=== PATIENT | female | born 1990 | race Two or more races ===

== ENCOUNTER → 2017-12-01 | Outpatient (CLI) | payer OTHER ==
[~2017-12-01] MED LIST: ATARAX25 MG PO; PROVENTIL3 ML/2.5 M IH; SYNTHROID50 MCG; SYNTHROID50 MCG PO; SYNTROID PO; ULTRACET PO; VOLTAREM 50 MG PO; ZITHROMAX200 MG PO; ZYNCOF 20-400120 ML PO; ZYRTEC10 MG PO
== END | disposition left against medical advice (07) ==
LOC: CERTIFICAD 08:17 → PPHC 08:17
DX: Z53.20 Procedure and treatment not carried out because of patient's decision for unspecified reasons (principal)

== ENCOUNTER → 2018-01-25 | Outpatient (CLI) | payer OTHER | END | disposition home or self-care (01) | LOC: PPHC 09:08 | DX: J06.9 Acute upper respiratory infection, unspecified (principal) ==

== ENCOUNTER → 2018-01-27 | Outpatient (CLI) | payer OTHER | END | disposition home or self-care (01) | LOC: PPHC 10:58 | DX: R49.0 Dysphonia (principal) ==

== ENCOUNTER 2018-02-07 10:53 | Outpatient (CLI) | payer OTHER | END 2018-02-07 11:05 | disposition home or self-care (01) | LOC: RAD 10:53 | DX: R06.02 Shortness of breath (principal); R09.81 Nasal congestion ==

== ENCOUNTER → 2018-02-07 | Outpatient (CLI) | payer OTHER | END | disposition home or self-care (01) | LOC: PPHC 09:47 | DX: J06.9 Acute upper respiratory infection, unspecified (principal) ==

== ENCOUNTER 2018-03-22 11:18 | Outpatient (CLI) | payer OTHER | END 2018-03-22 11:20 | disposition home or self-care (01) | LOC: LAB 11:18 | DX: J11.89 Influenza due to unidentified influenza virus with other manifestations (principal); R50.9 Fever, unspecified ==

== ENCOUNTER 2018-08-06 11:00 | Outpatient (CLI) | payer OTHER | END 2018-08-06 11:06 | disposition home or self-care (01) | LOC: RAD 11:00 | DX: G50.1 Atypical facial pain (principal) ==

== ENCOUNTER 2018-08-11 12:32 | Outpatient (CLI) | payer OTHER | END 2018-08-11 12:56 | disposition home or self-care (01) | LOC: LAB 12:32 | DX: E03.8 Other specified hypothyroidism (principal); R03.0 Elevated blood-pressure reading, without diagnosis of hypertension ==

== ENCOUNTER 2018-10-17 10:12 | Outpatient (CLI) | payer OTHER | END 2018-10-17 10:18 | disposition home or self-care (01) | LOC: LAB 10:12 | DX: J11.1 Influenza due to unidentified influenza virus with other respiratory manifestations (principal); J40 Bronchitis, not specified as acute or chronic ==